=== PATIENT | male | born 1995 | race Caucasian/White ===

== ENCOUNTER 2019-04-15 19:00 | Emergency (ER) | payer BC ==
[2019-04-15] MEDS: IBUPROFEN 600 MG TAB PO (20:38)
[2019-04-15] MEDS: LIDOCAINE 1% (MDV) 20 ML INJ SC (21:18)
== END 2019-04-15 21:39 | disposition home or self-care (01) ==
LOC: FTE 19:00
DX: L05.01 Pilonidal cyst with abscess (principal)
CPT/HCPCS: 10080; 99283-25